=== PATIENT | male | born 1995 | race Two or more races ===

== ENCOUNTER 2025-09-13 10:09 | Emergency (ER) | payer OTHER, SELFPAY ==
[2025-09-13 10:19] VITALS: BP 150/97; PULSE 78; RESP 20; TEMP 36.8; O2SAT 98; BMI 27.8
--- NOTE | 2025-09-13 10:42 | EDNOTE_ITS ---
<Statement entered by Maira Souza MD - 09/14/25 17:42> As co-signing physician, I was present and available for consult prn. I concur with the plan and care as documented by the midlevel provider. ED General RME/HPI General Chief complaint: General Adult/Misc Complain Stated complaint: PRESCRIPTION REFILL Time Seen by Provider: 09/13/25 10:40 Source: patient Arrival date/time: 09/13/25 10:09 30-year-old male with no known medical history presents to the emergency room with a chief complaint of needing a Suboxone medication prescription refill. Mode of arrival: ambulatory Limitations: no limitations Related Data Allergies Allergy/AdvReac Type Severity Reaction Status Date / Time No Known Allergies Allergy Verified 09/13/25 10:11 Review of Systems Review of Systems Systems Reviewed: All systems reviewed, normal except as documented Constitutional Constitutional: Reports system reviewed and no additional complaints, except as documented, Denies fatigue, Denies fever(s), Denies headache(s) and Denies weakness Eyes Eyes: Reports system reviewed and no additional complaints, except as documented, Denies blurry vision and Denies change in vision ENT Ears, Nose, Mouth, and Throat: Reports system reviewed and no additional complaints, except as documented, Denies otalgia, Denies headache(s), Denies vy al congestion, Denies throat swelling and Denies vertigo Cardiovascular Cardiovascular: Reports system reviewed and no additional complaints, except as documented, Denies chest pain, Denies dyspnea and Denies dyspnea on exertion Respiratory Respiratory: Reports system reviewed and no additional complaints, except as documented, Denies chest congestion, Denies cough, Denies dyspnea, Denies dyspnea on exertion and Denies wheezing Gastrointestinal Gastrointestinal: Reports system reviewed and no additional complaints, except as documented, Denies abdominal pain, Denies cramping, Denies nausea and Denies vomiting Genitourinary Genitourinary: Reports system reviewed and no additional complaints, except as documented, Denies dysuria and Denies hematuria Musculoskeletal Musculoskeletal: Reports system reviewed and no additional complaints, except as documented and Denies back pain Integumentary/Breasts Skin/Breast: Reports system reviewed and no additional complaints, except as documented and Denies wounds Neurologic Neurologic: Reports system reviewed and no additional complaints, except as documented, Denies confusion, Denies headache(s), Denies lack of coordination, Denies vertigo and Denies weakness Psychiatric Psychiatric: Reports system reviewed and no additional complaints, except as documented, Denies anxiety, Denies confusion, Denies depression, Denies paranoia, Denies suicidal ideation and Denies tactile hallucinations Endocrine Endocrine: Reports system reviewed and no additional complaints, except as documented and Denies fatigue Hematologic/Lymphatic Hematologic/Lymphatic: Reports system reviewed and no additional complaints, except as documented and Denies lymphadenopathy Allergic/Immunologic Allergic/Immunologic: Reports system reviewed and no additional complaints, except as documented, Denies throat swelling, Denies urticaria and Denies wheezing Past Medical History Social History SMOKING STATUS: Never smoker ED Exam General Limitations: Present no limitations General appearance: Present alert and in no apparent distress Head Head exam: Present atraumatic Eye Eye exam: Present normal appearance, PERRL and EOMI ENT ENT exam: Present normal exam, normal oropharynx and mucous membranes moist Neck Neck exam: Present normal inspection, full ROM and trachea midline Chest Chest inspection: Present normal inspection and symmetric chest wall rise Respiratory Respiratory exam: Present normal lung sounds bilaterally Cardiovascular Cardiovascular exam: Present regular rate, normal rhythm and normal heart sounds Abdominal Exam Abdominal exam: Present soft and normal bowel sounds Extremities Exam Extremities exam: Present normal inspection and full ROM Back Exam Back exam: Present normal inspection and full ROM Neurological Exam Neurological exam: Present alert, oriented X3 and CN II-XII intact Psychiatric Psychiatric exam: Present normal affect and normal mood Skin Skin exam: Present warm, dry, intact and normal color Course Quality Measures none Vital Signs Vital signs: Vital Signs Temperature 98.3 F 09/13/25 10:19 Pulse Rate 78 09/13/25 10:19 Respiratory Rate 20 09/13/25 10:19 Blood Pressure 150/97 H 09/13/25 10:19 Pulse Oximetry (%) 98 09/13/25 10:19 Oxygen Delivery Method Room Air 09/13/25 10:19 Discharge Plan Plan Patient Disposition: HOME (Self Care) Discharge Disposition comment: Stable Problem List Clinical Impression: Encounter for medication refill Patient/Caregiver Discharge Instructions Additional Instructions: Please follow-up with your primary care provider for further management and for refills on your Suboxone medication For any evidence of worsening signs or symptoms return to the emergency room immediately Print Language: Georgian Stand Alone Forms: [employer] Award Info., Work/School Release, Patient Portal Info Letter MDM Narrative MDM hospital course (for use when minimal MDM required): 30-year-old male with no known medical history presents to the emergency room with a chief complaint of needing a Suboxone medication prescription refill. Patient is hemodynamically stable and in no apparent distress. There is no palpitations no chest pain no stomach pain. CIWA score is 0 Patient states he was recently incarcerated and was put on this medication due to his opioid dependence. Patient states he does not know his dosage. I educated patient to follow-up with his primary care provider for further management and to start him on the Suboxone medication. Patient agreed and states he will go to his primary care provider right after this Patient was discharged and educated to follow-up with primary care provider in the next 24 to 48 hours and return to the emergency room for any evidence of worsening signs or symptoms Clinical Information Provided by: patient Medical Records reviewed None Meds/Rx considered, not ordered None Labs/Rad/Tests considered, not ordered None Chronic Illness/Social Conditions which may negatively complicate care or outcome(s)-explain: None or not applicable EKG EKG not done Labs Labs: none Imaging Imaging interpretation: none Medication Administration(s) none Diagnosis Differential Diagnosis ED Complaint MDM: Encounter for medication refill
== END 2025-09-13 11:35 | disposition home or self-care (01) ==
LOC: SERX 11:10
PROVIDERS: Emergency Provider Nurse Practitioner Family
DX: Z76.0 Encounter for issue of repeat prescription (principal)
CPT/HCPCS: 99281